=== PATIENT | male | born 1975 | race African-American/Black ===

== ENCOUNTER 2023-01-31 19:22 | Emergency (ER) | payer MEDICAID ==
[~2023-01-31] VITALS: Ht 170.2 cm; Wt 182.0 kg
[2023-01-31 19:36] VITALS: BP 149/97; PULSE 74; RESP 18; TEMP 98.6; O2SAT 100
[2023-01-31] MEDS ORDERED: KETOROLAC 30MG/ML VIAL IM ONE (21:30)
== END 2023-02-01 00:29 | disposition left against medical advice (07) ==
LOC: ER 19:22
DX: M79.641 Pain in right hand (principal); M25.531 Pain in right wrist
CPT/HCPCS: 73110; 73130; 99284

== ENCOUNTER 2023-12-25 03:17 | Emergency (ER) | payer MEDICAID, OTHER ==
[~2023-12-25] VITALS: Ht 177.8 cm; Wt 85.6 kg
[2023-12-25 03:32] VITALS: TEMP 98.6; O2SAT 98
[2023-12-25 03:33] VITALS: BP 159/100; PULSE 87; RESP 20; O2SAT 98
== END 2023-12-25 03:50 ==
LOC: ER 03:17
DX: R11.0 Nausea (principal)
CPT/HCPCS: 99281